=== PATIENT | male | born 1940 | race Caucasian/White ===

== ENCOUNTER 2018-06-21 07:52 | Day surgery (SDC) | payer MEDICARE, BC ==
[2018-06-21] VITALS (11 sets, daily range): BP systolic 116–167; BP diastolic 39–95
[~2018-06-21] VITALS: Ht 170.2 cm; Wt 81.4 kg
[~2018-06-21 07:52] MED LIST: ATOR80TA PO; CHOL100046 PO; CLOP75TA35 PO; DIAZ5TAB PO; HYDR-4353 PO; METO25TA6 PO; OXYC40TA48 PO; PREG200C PO
[2018-06-21] MEDS ORDERED: acetylcysteine 200 MG/ml 4ml vial PO PRN (08:20)
[2018-06-21] MEDS ORDERED: diphenhydrAMINE 25mg capsule PO PRN (08:20)
[2018-06-21] MEDS ORDERED: LORazepam 0.5 MG tablet PO PRN (08:20)
[2018-06-21] MEDS ORDERED: normal saline 1000ml 1,000 ML IV SCH (08:20)
[2018-06-21] MEDS ORDERED: LIDOcaine/PRILOcaine 5gm cream TP ONE (08:35)
[2018-06-21] MEDS ORDERED: verapamil 2.5 mg/ml inj IV ONE (10:18)
[2018-06-21] MEDS ORDERED: nitroGLYCERIN-Tridil 50MG/D5W 250 ML IV ONE (10:18)
[2018-06-21] MEDS ORDERED: fentaNYL/PF 50MCG/1 ML 2ML syringe ONE (10:18)
[2018-06-21] MEDS ORDERED: iohexol 350 MG/ML 50ML vial IV ONE (10:19)
[2018-06-21] MEDS ORDERED: iohexol 350MG/ML 100ml bottle IV ONE (10:19)
[2018-06-21] MEDS ORDERED: heparin 1,000unit/ml 10ml vial 10 ML ONE (10:19)
[2018-06-21] MEDS ORDERED: LIDOcaine 1% (10mg/ml)w/preservative injection 20ml MDV ONE (10:19)
[2018-06-21] MEDS ORDERED: midazolam 2 mg/2 ml injection ONE (10:19)
[2018-06-21] MEDS ORDERED: HYDROmorphone 1 mg/ml syringe ONE (11:03)
== END 2018-06-21 17:00 | disposition home or self-care (01) ==
LOC: SSTAY O 07:52
PROVIDERS: ATTEND Internal Medicine Cardiovascular Disease
DX: I25.119 Atherosclerotic heart disease of native coronary artery with unspecified angina pectoris (principal); E78.5 Hyperlipidemia, unspecified; Z87.891 Personal history of nicotine dependence; Z79.899 Other long term (current) drug therapy; Z95.5 Presence of coronary angioplasty implant and graft; Z98.890 Other specified postprocedural states
CPT/HCPCS: 93005; 93458; 99152; 99153; A6257; J1170; J1644; J2001; J2250; J3010; J7030; Q0163; Q9967; A4620; C1769; J3490